=== PATIENT | female | born 1940 | race Hispanic/Latino ===

== ENCOUNTER 2020-08-14 06:30 | Day surgery (SDC) | payer MEDICARE ==
[2020-08-10 12:05] LABS: Hematocrit 41.9 % (30.3-42.9); Hemoglobin 14.4 gm/dl (10.1-14.3); Mean Corpuscular HGB Conc 35 % (30-34); Mean Corpuscular Volume 94 fl (79-97); Platelet Count 200 K/mm3 (140-440); Red Blood Count 4.48 M/mm3 (3.65-5.03); Red Cell Distribution Width 14.9 % (13.2-15.2)
[2020-08-10 12:25] LABS: Blood Urea Nitrogen 15 mg/dL (7-17); Hemolysis Index 13
[2020-08-10 12:35] LABS: BUN/Creatinine Ratio 21
[2020-08-14] MEDS ORDERED: ONDANSETRON 4 MG/2 ML INJ IV PRN (07:24)
[2020-08-14] MEDS ORDERED: HYDROmorphone 1 MG/1 ML INJ IV PRN ×2 (07:24)
[2020-08-14] MEDS ORDERED: ONDANSETRON 4 MG/2 ML INJ ONE (07:25)
[2020-08-14] MEDS ORDERED: dexAMETHasone 20 MG/5 ML VIAL ONE (07:25)
[2020-08-14] MEDS ORDERED: GLYCOPYRROLATE 0.4 MG/2 ML INJ ONE (07:25)
[2020-08-14] MEDS ORDERED: LIDOCAINE MPF (2%) 20 MG/1 ML VIAL 5 ML ONE (07:25)
[2020-08-14] MEDS ORDERED: PHENYLEPHRINE/NS 1,000 MCG/10 ML SYRINGE (OR USE) IV ONE (07:25)
[2020-08-14] MEDS ORDERED: SUCCINYLCHOLINE CHLORIDE 200 MG/10 ML INJ MDV ONE (07:25)
[2020-08-14] MEDS ORDERED: propofoL 200 MG/20 ML VIAL IV ONE (07:26)
[2020-08-14] MEDS ORDERED: fentaNYL 100 MCG/2 ML INJ ONE (07:26)
--- NOTE | 2020-08-14 07:29 | Anesthesia Day of Surgery ---
Anesthesia Day of Surgery - Day of Surgery Patient Examined: Yes Patient H&P Reviewed: Yes Patient is NPO: Yes Beta Blockers: Yes
[2020-08-14] MEDS ORDERED: LACTATED RINGERS 1,000 ML IV SCH (07:30)
--- NOTE | 2020-08-14 07:32 | Anesthesia Consultation ---
Anesthesia Consult and Med Hx Date of service: 08/14/20 - Airway Anesthetic Teeth Evaluation: Crowns (Implants) ROM Head & Neck: Adequate Mental/Hyoid Distance: Inadequate (Anterior airway) Mallampati Class: Class III Intubation Access Assessment: Probably Good - Pre-Operative Health Status ASA Pre-Surgery Classification: ASA2 Proposed Anesthetic Plan: General - Pulmonary Hx Smoking: No Hx Respiratory Symptoms: No (+2FS) Hx Sleep Apnea: No (KRISTEN PRE SCREEN HIGH RISK) - Cardiovascular System Hx Hypertension: Yes (X 10 YRS. 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
[2020-08-14] MEDS ORDERED: MIDAZOLAM 2 MG/2 ML INJ IV NR (08:00)
[2020-08-14] MEDS ORDERED: ceFAZolin/STERILE WATER 2 GM/20 ML SYRINGE IV NR (08:00)
[2020-08-14] MEDS ORDERED: WATER FOR IRRIG STERILE 2000 ML IR ONE (08:50)
--- NOTE | 2020-08-14 09:07 | Operative Report ---
PREOPERATIVE DIAGNOSES: Chronic cystitis, pelvic pain. POSTOPERATIVE DIAGNOSIS: Evidence of mild interstitial cystitis. PROCEDURES: Cystoscopy, hydrodistention, retrograde. SURGEON: Dr. Banuelos. ANESTHESIA: General. FINDINGS: This is a woman with pelvic pain, " she now presents for treatment. DESCRIPTION OF PROCEDURE: The patient was brought to the operating room and placed on the operating table. Following induction of anesthesia, placed in lithotomy position, prepped and draped in usual sterile fashion. Cystourethroscopy showed no bladder lesions. The epithelium was normal. Retrograde showed delicate systems bilaterally. Good drainage. No biopsies were required. Distension easily accommodated about 650-700 mL. 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 The patient tolerated the procedure well. Bimanual exam showed no masses. She was brought to recovery room without a Cao in stable condition. JOB# [id number] PEDRO/CHRISTI
--- NOTE | 2020-08-14 09:09 | Post Operative Note ---
Date of procedure: 08/14/20 Pre-op diagnosis: cystitis Post-op diagnosis: same Findings: cysto hydro rpgs Procedure: cysto rpgs Anesthesia: GETA Surgeon: EKTA JONES Estimated blood loss: none Pathology: none Condition: stable Disposition: PACU
--- NOTE | 2020-08-14 09:10 | Discharge Summary ---
Short Stay Discharge Plan Activity: other (no straining ) Weight Bearing Status: Full Weight Bearing Diet: low fat, low cholesterol, low salt Special Instructions: other (inc fluids ) Follow up with: JERRI YBARRA MD [Primary Care Provider] - 7 Days EKTA JONES MD [Staff Physician] - 14 Days
--- NOTE | 2020-08-14 09:44 | Post Anesthesia Evaluation ---
- Post Anesthesia Evaluation Patient Participated: Yes Airway Patent: Yes Stable Respiratory Function: Yes Nausea/Vomiting: No Temp > 96.8F: Yes Pain Manageable: Yes Adequeate Hydration: Yes Anesthesia Complications: No Block Receding Appropriately: Not Applicable Patient on Ventilator: No
--- NOTE | 2020-08-14 09:51 | Fluoroscopy Report ---
FLUOROSCOPY RETROGRADE UROGRAPHY HISTORY: Hematuria FINDINGS: Fluoroscopy was provided by radiology during retrograde urography by the urologist. There i s normal filling of both renal collecting systems. No filling defect or abnormal dilatation is identi fied. IMPRESSION: Unremarkable bilateral retrograde pyelograms Fluoroscopy time: 6 seconds Fluoroscopic images: 6 Signer Name: Alexander Steven Jr, MD Signed: 08/14/2020 9:46 AM Workstation Name: [id number]
[2020-08-14 11:05] VITALS: BP 151/75
== END 2020-08-14 12:00 | disposition home or self-care (01) ==
LOC: OR 06:30
PROVIDERS: ATTEND Urology
DX: N30.10 Interstitial cystitis (chronic) without hematuria (principal); R10.2 Pelvic and perineal pain; G43.909 Migraine, unspecified, not intractable, without status migrainosus; I10 Essential (primary) hypertension; M19.90 Unspecified osteoarthritis, unspecified site; F32.9 Major depressive disorder, single episode, unspecified; F41.9 Anxiety disorder, unspecified; Z86.19 Personal history of other infectious and parasitic diseases; Z79.899 Other long term (current) drug therapy; Z98.42 Cataract extraction status, left eye; Z98.41 Cataract extraction status, right eye; Z87.440 Personal history of urinary (tract) infections; Z98.890 Other specified postprocedural states
CPT/HCPCS: 36415; 52260; 74420; 80048; 85027; A4217; C1758; J0330; J0690; J1100; J2250; J2370; J2405; J2704; J3010; J7120; Q9967; U0003